=== PATIENT | male | born 1995 | race Caucasian/White ===

== ENCOUNTER 2017-10-01 00:14 | Emergency (ER) | payer SELFPAY ==
[~2017-10-01] VITALS: Ht 170.2 cm; Wt 72.1 kg
[2017-10-01 00:19] VITALS: BP 126/73
--- NOTE | 2017-10-01 00:23 | NUR ---
PT TAKEN TO BED 11
--- NOTE | 2017-10-01 00:27 | NUR ---
Dr. Martinez evaluating patient at bedside.
[2017-10-01] MEDS ORDERED: KETOROLAC 60 MG/2 ML VIAL IM ONE (00:30)
[2017-10-01 00:31] VITALS: BP 126/73
--- NOTE | 2017-10-01 00:31 | NUR ---
PATIENT IS A 22 Y/O MALE WHO PRESENTS TO THE ED C/O ATYPICAL CHEST PAIN. PT STATES THAT PAIN STARTED X4 HOURS AGO AFTER EATING. PT REPORTS 6/10 SHARP R LOWER CHEST PAIN THAT DOES NOT RADIATE, INCREASED WITH RESPIRATION. PT DENIES SOB, COUGH, N/V/D. PT AAOX4, RR EVEN/UNLABORED. PT REPOSITIONED FOR COMFORT, BED IN LOWEST POSITION. ER MD DR. ABREU NOTIFIED. WILL CONTINUE TO MONITOR.
== END 2017-10-01 00:49 | disposition home or self-care (01) ==
LOC: MED 00:14
DX: R07.89 Other chest pain (principal); R06.02 Shortness of breath
CPT/HCPCS: 96372; 99283; J1885